=== PATIENT | male | born 1940 | race Caucasian/White ===

== ENCOUNTER 2024-06-08 13:15 | Day surgery (SDC) | payer OTHER, MEDICARE, BC ==
[~2024-06-08] VITALS: Ht 165.1 cm; Wt 65.5 kg
[2024-06-08] VITALS (14 sets, daily range): BP systolic 113–187; BP diastolic 56–97; PULSE 51–105; TEMP 97.4–99.9
[~2024-06-08 13:15] MED LIST: Famotidine 20 MG TAB PO SCH; LR 1,000 ML IV SCH
--- NOTE | 2024-06-08 14:22 | NUR ---
PATIENT ADMITTED TO ROOM 8 AMBULATORY AND IS ALERT AND ORIENTED X3. VOICED UNDERSTANDING OF SURGERY AND CONSENT SIGND. IVF INFUSING AND READIED FOR SURGERY. SPOUSE IN ROOM. CALL LIGHT IN REACH.
[2024-06-08] MEDS ORDERED: BACTRIM DS 8001 TAB PO (14:25)
[2024-06-08] MEDS ORDERED: RT SPIRIVA18 MCG IH (14:38)
[2024-06-08] MEDS ORDERED: PLAVIX 75MG TAB75 MG PO (14:38)
[2024-06-08] MEDS ORDERED: FLOMAX 0.40.4 MG/CAP PO (14:39)
[2024-06-08] MEDS ORDERED: LIPITOR 40MG TA40 MG PO (14:39)
[2024-06-08] MEDS ORDERED: ZADITOR 5 ML5 ML OP (14:40)
[2024-06-08] MEDS ORDERED: NS 10 ML IV ONE (15:05)
[2024-06-08] MEDS ORDERED: Lidocaine 2% (20 MG/ML) 20 ML UROJET UR ONE (15:21)
[2024-06-08] MEDS ORDERED: Ondansetron 4 MG/2 ML VIAL ONE (15:25)
[2024-06-08] MEDS ORDERED: fentaNYL 50 MCG/ML 2 ML VIAL ONE (15:26)
[2024-06-08] MEDS ORDERED: HYDROmorphone 1 MG/1 ML SYRINGE [PACU/SDC ONLY] IV PRN (15:45)
[2024-06-08] MEDS ORDERED: Meperidine 50 MG/ML 1 ML VIAL IV PRN (15:45)
[2024-06-08] MEDS ORDERED: fentaNYL 50 MCG/ML 1 ML SYRINGE/VIAL [PACU/SDC ONLY] IV PRN (15:45)
[2024-06-08] MEDS ORDERED: hydrALAZINE 20 MG/ML 1 ML VIAL IV PRN (15:45)
[2024-06-08] MEDS ORDERED: Ondansetron 4 MG/2 ML VIAL IV PRN ×2 (15:45→16:15)
[2024-06-08] MEDS ORDERED: LR 1,000 ML IV ONE (16:10)
[2024-06-08] MEDS ORDERED: NS Irrig Soln 3000 ML SOLN IR PRN (16:15)
[2024-06-08] MEDS ORDERED: Acetaminophen 325 MG TAB PO PRN (16:15)
[2024-06-08] MEDS ORDERED: oxyCODONE/Acetaminophen 5-325 MG TAB PO PRN (16:15)
[2024-06-08] MEDS ORDERED: Morphine 4 MG/ML VIAL IV PRN (16:15)
[2024-06-08] MEDS ORDERED: Hyoscyamine 0.125 MG Sublingual TAB SL PRN ×2 (16:15)
[2024-06-08] MEDS ORDERED: Magnes Hydrox (MOM) 80 MG/ML 30 ML CUP PO PRN (16:15)
[2024-06-08] MEDS ORDERED: 1/2 NS 1,000 ML IV SCH (16:15)
--- NOTE | 2024-06-08 17:15 | NUR ---
Patient arrived to the unit from PACU. Alert and oriented and in no distress. CBI infusing without issues. Urine pale yellow to peachy. VS stable. Call light left within reach.
[2024-06-08] MEDS ORDERED: Melatonin 3 MG TAB PO PRN (21:00)
[2024-06-08] MEDS ORDERED: Sennosides/Docusate 8.6-50 MG TAB PO SCH (21:00)
--- NOTE | 2024-06-08 21:40 | NUR ---
PATIENT ALERT AND ORIENTED X4. VSS. PATIENT HERE FOR BIPOLAR VAPORIZATION OF PROSTATE. BRIAN CATHETER TO TRACTION. CBI RUNNING AT A MODERATE RATE, LIGHT PINK WITH LIGHT SEDIMENT. IV TO RIGHT FA WITH 1/2 NS INFUSING AT 60ML/HOUR. PATIENT DENIES ANY PAIN, BLADDER SPASMS OR DISCOMFORT. PATIENT TOLERATING PO, RESTING IN BED. CALL LIGHT IN REACH.
[2024-06-09 00:50] VITALS: BP_SYST 113
[2024-06-09 04:12] VITALS: BP 96/58; PULSE 76; TEMP 98.4
[2024-06-09 05:13] VITALS: BP_SYST 96
--- NOTE | 2024-06-09 06:12 | NUR ---
ATTEMPTED TO PERFORM CBI INTERVENTION, THERE IS A DISCREPANCY IN FLUIDS HANGING FROM PACU/RECEIVING NURSE. ATTEMPTED TO CALCULATE ACCURATE POSSIBLE.
[2024-06-09 08:05] VITALS: BP 116/66; PULSE 78; TEMP 98.3
[2024-06-09 08:30] VITALS: BP_SYST 116
--- NOTE | 2024-06-09 08:30 | NUR ---
Pt. sitting up in bed. Pt. is A&OX3, assessment complete. INT to rt. wrist patent. Mosher catheter prime and pulled this am. Pt. tolerated well. Pt. did have an episode of incontinence following pull. Urine is red tinged and no clots noted. Pt. denies pain or other needs, call light within reach.
[2024-06-09] MEDS ORDERED: Tiotropium 2.5 MCG Respimat MDI IH SCH (09:00)
[2024-06-09] MEDS ORDERED: Tiotropium 18 MCG **** subs to Tiotropium 5 mcg IH SCH (09:00)
[2024-06-09] MEDS ORDERED: Atorvastatin 40 MG TAB PO SCH (09:00)
--- NOTE | 2024-06-09 09:50 | NUR ---
Initial visit; Patient thanked Human Geography Instructor for looking in on him and offering God's blessings. Rocky is [employer] whose sister and Human Geography Instructor are friends. Human Geography Instructor wished Rocky well and will keep him in her prayers.
[2024-06-09 11:19] VITALS: BP 106/63; PULSE 67; TEMP 98.3
--- NOTE | 2024-06-09 11:40 | NUR ---
warehouse assembly worker met with pt to discuss discharge planning. He reports to live with his , Paolo [phone] in [place]. He sees Dr. Sola Lomas for PCP needs and obtains medications from the [facility] with no issues. He verified to have [employer], Medicare A/B, and [employer] insurance. He is independent with ADLS and uses a CPAP for DME. Pt reports no DPOA-HC, but is agreeable to being NOK. No further needs. Discharge Plan: home
--- NOTE | 2024-06-09 12:45 | NUR ---
Pt. with discharge orders. INT discontinued from rt. wrist. Reviewed and gave discharge packet to the pt. and . Pt. and voice understanding. Pt. dressed and escorted out.
== END 2024-06-09 12:45 | disposition home or self-care (01) ==
LOC: SDCO 13:15 → SURG 17:15 → SDCO 06-09 12:45
DX: N40.1 Benign prostatic hyperplasia with lower urinary tract symptoms (principal); R33.8 Other retention of urine; G47.33 Obstructive sleep apnea (adult) (pediatric); Z86.73 Personal history of transient ischemic attack (TIA), and cerebral infarction without residual deficits; Z79.01 Long term (current) use of anticoagulants; Z79.02 Long term (current) use of antithrombotics/antiplatelets; Z87.891 Personal history of nicotine dependence
CPT/HCPCS: OP; A9270; J0690; J2405; J2704; J3010; J7120